=== PATIENT | male | born 1935 | race Hispanic/Latino ===

== ENCOUNTER → 2017-07-19 | Outpatient (CLI) | payer MEDICARE ==
[~2017-07-19] MED LIST: ACET-2247 PO; CLOP75TA14 PO; DOCU-116 PO; GLIP10TA9 PO; HYDR-4068 PO; LACT10SO9 PO; LOSA1TAB37 PO; METF10004 PO; NAPR-1023 PO; OMEP20CA10 PO; VALS1TAB79 PO; [UNRECOGNIZED DRUG - CODE] PO
== END | disposition home or self-care (01) ==
LOC: RAH 13:24
PROVIDERS: ATTEND Family Medicine
DX: I73.9 Peripheral vascular disease, unspecified (principal); I70.0 Atherosclerosis of aorta
CPT/HCPCS: 93925

== ENCOUNTER 2017-08-14 22:37 | Inpatient (IN) | payer MEDICARE ==
[~2017-08-14] VITALS: Ht 160 cm; Wt 62.9 kg
[~2017-08-14 22:37] MED LIST changes: -CLOP75TA14 PO
[2017-08-15] MEDS ORDERED: ONDANSETRON HCL 4 MG/2 ML VIAL ONE (00:42)
[2017-08-15] MEDS ORDERED: MORPHINE SULFATE 4 MG/1ML SYG ONE (00:43)
[2017-08-15 00:50] LABS: BASOPHILS % (AUTO) 0.6 % (0.0-5.0); EOSINOPHILS % (AUTO) 1.5 % (0.0-8.0); HEMATOCRIT 26.1 % (42-54); LYMPHOCYTES % (AUTO) 13.6 % (21.0-51.0); MEAN CORPUSCULAR HEMOGLOBIN 26.5 pg (27.0-33.0); MEAN CORPUSCULAR HGB CONC 33.5 g/dL (32.0-36.0); MEAN CORPUSCULAR VOLUME 79.1 fL (79-99); MONOCYTES % (AUTO) 7.6 % (3.0-13.0); NEUTROPHILS % (AUTO) 76.7 % (40.0-77.0); PLATELET COUNT (AUTO) 387 K/uL (130-400); RED CELL DISTRIBUTION WIDTH 15.1 % (11.0-15.5); WHITE BLOOD COUNT (AUTO) 10.9 K/uL (4.8-10.8)
[2017-08-15 01:07] LABS: CREATININE 1.5 mg/dL (0.5-1.5); POTASSIUM 4.9 mmol/L (3.5-5.1)
[2017-08-15 01:10] LABS: INR 0.96 (0.85-1.15); PARTIAL THROMBOPLASTIN TIME 30.8 SEC (26.3-35.5); PROTHROMBIN TIME 10.1 SEC (9.6-11.6)
[2017-08-15 01:12] LABS: BILIRUBIN,TOTAL 0.3 mg/dL (0.2-1.0)
[2017-08-15] MEDS ORDERED: MORPHINE SULFATE 2 MG/ML 1ML SYG ONE (03:54)
[2017-08-15] MEDS ORDERED: SODIUM CHLORIDE 0.9% 1000ML 1,000 ML IV ONE (05:03)
[2017-08-15] MEDS ORDERED: MEROPENEM 500 MG VIAL ONE (05:06)
[2017-08-15] MEDS ORDERED: CLOP75TA14 PO (05:55)
[2017-08-15 05:59] VITALS: BP 137/109
[2017-08-15] MEDS ORDERED: POTASSIUM CHLORIDE 10% ELIXIR 20 MEQ/15 ML UDCUP PO PRN (06:15)
[2017-08-15] MEDS ORDERED: POTASSIUM CHLORIDE 20MEQ/100ML 100 ML IV PRN (06:15)
[2017-08-15] MEDS ORDERED: POTASSIUM CHLORIDE 20 MEQ ERTAB PO PRN (06:15)
[2017-08-15] MEDS ORDERED: DiphenhydrAMINE HCL 50 MG/ML VIAL IVP PRN (06:15)
[2017-08-15] MEDS ORDERED: LIDOCAINE HCL-MPF 1% 2ML VIAL IJ PRN (06:15)
[2017-08-15] MEDS ORDERED: GLUCAGON 1MG KIT 1 MG ML IM PRN (06:15)
[2017-08-15] MEDS ORDERED: DEXTROSE 50%-WATER 50 ML DISP.SYRIN IV PRN (06:15)
[2017-08-15] MEDS ORDERED: LACTULOSE 20 GM/30 ML UDCUP PO PRN (06:15)
[2017-08-15] MEDS ORDERED: DIPHENHYDRAMINE HCL 25 MG CAPSULE PO PRN (06:15)
[2017-08-15] MEDS: CLONIDINE HCL 0.1 MG TABLET PO PRN (06:26)
[2017-08-15] MEDS: ACETAMINOPHEN 325 MG TAB PO PRN (06:27)
[2017-08-15] MEDS: INSULIN R PO SS1 SQ SCH ×4 (06:43→20:35)
[2017-08-15] MEDS: SODIUM CHLORIDE 0.9% 1000ML 1,000 ML IV SCH (07:30)
[2017-08-15 08:02] VITALS: BP 101/61
[2017-08-15 08:37] LABS: HEMATOCRIT 25.8 % (42-54); MEAN CORPUSCULAR HEMOGLOBIN 25.9 pg (27.0-33.0); MEAN CORPUSCULAR HGB CONC 32.8 g/dL (32.0-36.0); MEAN CORPUSCULAR VOLUME 78.9 fL (79-99); PLATELET COUNT (AUTO) 416 K/uL (130-400); RED BLOOD CELL COUNT(AUTO) 3.27 MIL/uL (4.50-6.20); RED CELL DISTRIBUTION WIDTH 14.9 % (11.0-15.5); WHITE BLOOD COUNT (AUTO) 7.9 K/uL (4.8-10.8)
[2017-08-15 09:05] LABS: INR 0.98 (0.85-1.15); PARTIAL THROMBOPLASTIN TIME 30.8 SEC (26.3-35.5); PROTHROMBIN TIME 10.3 SEC (9.6-11.6)
[2017-08-15 09:08] LABS: CREATININE 1.5 mg/dL (0.5-1.5); POTASSIUM 4.5 mmol/L (3.5-5.1)
[2017-08-15] MEDS: FAMOTIDINE 20MG TAB 20 MG TAB PO SCH (09:24)
[2017-08-15] MEDS: CLOPIDOGREL BISULFATE 75 MG TAB PO SCH (09:24)
[2017-08-15] MEDS: LOSARTAN/HYDROCHLOROTHIAZIDE 50-12.5MG TABLET PO SCH ×2 (09:24→20:33)
[2017-08-15] MEDS: METFORMIN HCL 500 MG TABLET PO SCH ×2 (09:24→16:40)
[2017-08-15] MEDS: GLIPIZIDE 5 MG TABLET PO SCH ×2 (09:24→16:40)
[2017-08-15] MEDS: MORPHINE SULFATE 2 MG/ML 1ML SYG IVP PRN ×2 (09:29→18:10)
[2017-08-15] MEDS ORDERED: VANCOMYCIN PROTOCOL PER PHARMACY IV PRN (09:45)
[2017-08-15] MEDS ORDERED: VANCOMYCIN 1GM+NS 250ML 250 ML IV SCH (09:45)
[2017-08-15 11:32] VITALS: BP 123/64
[2017-08-15] MEDS: MEROPENEM 500 MG VIAL IVP SCH ×2 (13:22→20:35)
[2017-08-15 16:54] VITALS: BP 112/66
[2017-08-15 20:00] VITALS: BP 166/84
[2017-08-15] MEDS: MORPHINE SULFATE 4 MG/1ML SYG IVP PRN (22:05)
[2017-08-16] VITALS (7 sets, daily range): BP systolic 116–192; BP diastolic 68–88
[2017-08-16] MEDS: CLONIDINE HCL 0.1 MG TABLET PO PRN ×2 (00:31→20:15)
[2017-08-16] MEDS: SODIUM CHLORIDE 0.9% 1000ML 1,000 ML IV SCH ×2 (01:26→20:15)
[2017-08-16] MEDS: MEROPENEM 500 MG VIAL IVP SCH ×3 (04:57→20:14)
[2017-08-16 06:07] LABS: MEAN CORPUSCULAR HEMOGLOBIN 26.2 pg (27.0-33.0); MEAN CORPUSCULAR HGB CONC 33.5 g/dL (32.0-36.0); MEAN CORPUSCULAR VOLUME 78.4 fL (79-99); PLATELET COUNT (AUTO) 347 K/uL (130-400); RED BLOOD CELL COUNT(AUTO) 2.94 MIL/uL (4.50-6.20); WHITE BLOOD COUNT (AUTO) 9.4 K/uL (4.8-10.8)
[2017-08-16 06:19] LABS: CREATININE 1.4 mg/dL (0.5-1.5); POTASSIUM 4.5 mmol/L (3.5-5.1)
[2017-08-16] MEDS: FLU VACC QS2017-18 36MOS UP/PF 60 MCG/0.5 ML ML IM NR ×2 (06:26→06:28)
[2017-08-16] MEDS: PNEUMOCOCCAL VACCINE POLYVALENT 0.5 ML/VIAL [PPV] IM SCH ×2 (06:27→06:28)
[2017-08-16] MEDS: INSULIN R PO SS1 SQ SCH ×4 (06:27→20:25)
[2017-08-16] MEDS: MORPHINE SULFATE 4 MG/1ML SYG IVP PRN ×3 (09:15→22:51)
[2017-08-16] MEDS: FAMOTIDINE 20MG TAB 20 MG TAB PO SCH (09:50)
[2017-08-16] MEDS: CLOPIDOGREL BISULFATE 75 MG TAB PO SCH (09:50)
[2017-08-16] MEDS: LOSARTAN/HYDROCHLOROTHIAZIDE 50-12.5MG TABLET PO SCH ×2 (09:50→20:15)
[2017-08-16] MEDS: METFORMIN HCL 500 MG TABLET PO SCH ×2 (09:51→16:05)
[2017-08-16] MEDS: GLIPIZIDE 5 MG TABLET PO SCH ×2 (09:51→16:05)
[2017-08-16] MEDS: ENOXAPARIN SODIUM 30 MG/0.3 ML SQ SCH (09:52)
[2017-08-16] MEDS: ACETAMINOPHEN-CODEINE 300/30MG TAB PO PRN (20:15)
[2017-08-17 04:00] VITALS: BP 125/62
[2017-08-17] MEDS: MEROPENEM 500 MG VIAL IVP SCH ×3 (04:24→21:37)
[2017-08-17] MEDS: MORPHINE SULFATE 4 MG/1ML SYG IVP PRN (04:29)
[2017-08-17 05:45] LABS: HEMATOCRIT 22.7 % (42-54); MEAN CORPUSCULAR HEMOGLOBIN 25.8 pg (27.0-33.0); MEAN CORPUSCULAR HGB CONC 33.1 g/dL (32.0-36.0); PLATELET COUNT (AUTO) 368 K/uL (130-400); RED BLOOD CELL COUNT(AUTO) 2.92 MIL/uL (4.50-6.20); WHITE BLOOD COUNT (AUTO) 8.3 K/uL (4.8-10.8)
[2017-08-17 05:53] LABS: CREATININE 1.4 mg/dL (0.5-1.5); POTASSIUM 4.4 mmol/L (3.5-5.1)
[2017-08-17] MEDS: INSULIN R PO SS1 SQ SCH ×4 (05:58→22:15)
[2017-08-17 07:30] VITALS: BP 110/58
[2017-08-17] MEDS ORDERED: COMPOUND IV REFRIGERATED 1 EACH IVSOLN MISC PRN (08:15)
[2017-08-17] MEDS ORDERED: VANCOMYCIN 1.25 GM in SODIUM CHLORIDE 0.9% 250 ML IV SCH (09:00)
[2017-08-17] MEDS: ENOXAPARIN SODIUM 30 MG/0.3 ML SQ SCH (09:00)
[2017-08-17] MEDS: SODIUM CHLORIDE 0.9% 1000ML 1,000 ML IV SCH ×2 (10:04→18:09)
[2017-08-17] MEDS: GLIPIZIDE 5 MG TABLET PO SCH ×2 (10:32→17:00)
[2017-08-17] MEDS: LOSARTAN/HYDROCHLOROTHIAZIDE 50-12.5MG TABLET PO SCH ×2 (10:32→21:38)
[2017-08-17] MEDS: ASPIRIN 81MG TAB.CHEW PO SCH (10:32)
[2017-08-17] MEDS: FAMOTIDINE 20MG TAB 20 MG TAB PO SCH (10:32)
[2017-08-17] MEDS: METFORMIN HCL 500 MG TABLET PO SCH ×2 (10:32→17:00)
[2017-08-17 10:38] LABS: RETICULOCYTE % (AUTO) 1.46 % (0.42-2.23)
[2017-08-17] MEDS ORDERED: COMPOUND IV MISC 1 EACH IVSOLN MISC PRN (10:45)
[2017-08-17 11:07] LABS: % IRON SATURATION 6.9 % (30-44)
[2017-08-17 12:00] VITALS: BP 137/68
[2017-08-17] MEDS: IRON SUCROSE COMPLEX 100 MG in SODIUM CHLORIDE 0.9% 50 ML IV SCH (13:39)
[2017-08-17 16:00] VITALS: BP 133/53
[2017-08-17] MEDS ORDERED: IOPAMIDOL-370 100 ML VIAL IV ONE (16:48)
[2017-08-17] MEDS: MORPHINE SULFATE 2 MG/ML 1ML SYG IVP PRN (17:10)
[2017-08-17 19:56] VITALS: BP 145/64
[2017-08-17] MEDS: VANCOMYCIN 750MG + NS 250 ML IV SCH ×2 (21:36)
[2017-08-17 23:44] VITALS: BP 140/59
[2017-08-18] MEDS: MORPHINE SULFATE 2 MG/ML 1ML SYG IVP PRN (04:22)
[2017-08-18 05:12] VITALS: BP 145/69
[2017-08-18] MEDS: MEROPENEM 500 MG VIAL IVP SCH ×3 (05:17→21:23)
[2017-08-18 05:33] LABS: MEAN CORPUSCULAR HEMOGLOBIN 26.2 pg (27.0-33.0); MEAN CORPUSCULAR HGB CONC 33.6 g/dL (32.0-36.0); MEAN CORPUSCULAR VOLUME 77.9 fL (79-99); PLATELET COUNT (AUTO) 389 K/uL (130-400); RED BLOOD CELL COUNT(AUTO) 2.95 MIL/uL (4.50-6.20); RED CELL DISTRIBUTION WIDTH 15.3 % (11.0-15.5); WHITE BLOOD COUNT (AUTO) 8.5 K/uL (4.8-10.8)
[2017-08-18 05:46] LABS: CREATININE 1.4 mg/dL (0.5-1.5); POTASSIUM 4.3 mmol/L (3.5-5.1)
[2017-08-18] MEDS: INSULIN R PO SS1 SQ SCH ×4 (06:34→21:00)
[2017-08-18 07:45] VITALS: BP 166/70
[2017-08-18] MEDS: VANCOMYCIN 750MG + NS 250 ML IV SCH ×4 (10:14→21:24)
[2017-08-18] MEDS: FAMOTIDINE 20MG TAB 20 MG TAB PO SCH (10:14)
[2017-08-18] MEDS: IRON SUCROSE COMPLEX 100 MG in SODIUM CHLORIDE 0.9% 50 ML IV SCH (10:14)
[2017-08-18] MEDS: GLIPIZIDE 5 MG TABLET PO SCH ×2 (10:15→17:28)
[2017-08-18] MEDS: LOSARTAN/HYDROCHLOROTHIAZIDE 50-12.5MG TABLET PO SCH ×2 (10:15→21:23)
[2017-08-18] MEDS: ASPIRIN 81MG TAB.CHEW PO SCH (10:15)
[2017-08-18] MEDS: ENOXAPARIN SODIUM 30 MG/0.3 ML SQ SCH (10:16)
[2017-08-18] MEDS: METFORMIN HCL 500 MG TABLET PO SCH ×2 (10:16→17:27)
[2017-08-18] MEDS: ACETAMINOPHEN-CODEINE 300/30MG TAB PO PRN ×2 (10:17→21:23)
[2017-08-18 12:00] VITALS: BP 149/66
[2017-08-18 17:04] VITALS: BP 132/94
[2017-08-18 20:01] VITALS: BP 146/71
[2017-08-19] VITALS (7 sets, daily range): BP systolic 132–180; BP diastolic 64–87
[2017-08-19] MEDS: MORPHINE SULFATE 4 MG/1ML SYG IVP PRN (00:56)
[2017-08-19] MEDS: CLONIDINE HCL 0.1 MG TABLET PO PRN ×2 (05:23→23:26)
[2017-08-19] MEDS: MEROPENEM 500 MG VIAL IVP SCH ×3 (05:23→20:16)
[2017-08-19] MEDS: INSULIN R PO SS1 SQ SCH ×4 (05:45→21:00)
[2017-08-19] MEDS: VANCOMYCIN 750MG + NS 250 ML IV SCH ×2 (09:00)
[2017-08-19] MEDS: MORPHINE SULFATE 2 MG/ML 1ML SYG IVP PRN ×2 (09:04→18:48)
[2017-08-19] MEDS: ENOXAPARIN SODIUM 30 MG/0.3 ML SQ SCH (09:05)
[2017-08-19] MEDS: FAMOTIDINE 20MG TAB 20 MG TAB PO SCH (09:06)
[2017-08-19] MEDS: ASPIRIN 81MG TAB.CHEW PO SCH (09:06)
[2017-08-19] MEDS: IRON SUCROSE COMPLEX 100 MG in SODIUM CHLORIDE 0.9% 50 ML IV SCH (09:06)
[2017-08-19] MEDS: LOSARTAN/HYDROCHLOROTHIAZIDE 50-12.5MG TABLET PO SCH ×2 (09:06→20:17)
[2017-08-19] MEDS: METFORMIN HCL 500 MG TABLET PO SCH ×2 (09:06→16:49)
[2017-08-19] MEDS: GLIPIZIDE 5 MG TABLET PO SCH ×2 (09:06→16:49)
[2017-08-19] MEDS ORDERED: CYANOCOBALAMIN (VITAMIN B-12) 1000 MCG/ML 1ML VIAL IM ONE (14:30)
[2017-08-19] MEDS ORDERED: CYANOCOBALAMIN (VITAMIN B-12) 1000 MCG/ML 1ML VIAL ONE (15:56)
[2017-08-19] MEDS: VANCOMYCIN 1GM+NS 250ML 250 ML IV SCH (20:17)
[2017-08-20 04:12] VITALS: BP 137/66
[2017-08-20 04:54] LABS: MEAN CORPUSCULAR HEMOGLOBIN 25.8 pg (27.0-33.0); MEAN CORPUSCULAR HGB CONC 33.2 g/dL (32.0-36.0); MEAN CORPUSCULAR VOLUME 77.6 fL (79-99); PLATELET COUNT (AUTO) 420 K/uL (130-400); RED BLOOD CELL COUNT(AUTO) 2.96 MIL/uL (4.50-6.20); RED CELL DISTRIBUTION WIDTH 15.3 % (11.0-15.5)
[2017-08-20 05:08] LABS: CREATININE 1.2 mg/dL (0.5-1.5)
[2017-08-20] MEDS: MEROPENEM 500 MG VIAL IVP SCH ×3 (05:21→21:13)
[2017-08-20] MEDS: INSULIN R PO SS1 SQ SCH ×4 (06:45→20:33)
[2017-08-20 08:00] VITALS: BP 148/63
[2017-08-20] MEDS: IRON SUCROSE COMPLEX 100 MG in SODIUM CHLORIDE 0.9% 50 ML IV SCH (09:24)
[2017-08-20] MEDS: ENOXAPARIN SODIUM 30 MG/0.3 ML SQ SCH (09:25)
[2017-08-20] MEDS: ASPIRIN 81MG TAB.CHEW PO SCH (09:25)
[2017-08-20] MEDS: METFORMIN HCL 500 MG TABLET PO SCH (09:25)
[2017-08-20] MEDS: FAMOTIDINE 20MG TAB 20 MG TAB PO SCH (09:25)
[2017-08-20] MEDS: LOSARTAN/HYDROCHLOROTHIAZIDE 50-12.5MG TABLET PO SCH ×2 (09:25→21:14)
[2017-08-20] MEDS: GLIPIZIDE 5 MG TABLET PO SCH ×2 (09:25→16:58)
[2017-08-20] MEDS ORDERED: LIDOCAINE HCL 2% VISCOUS 30 ML, MAG HYDROX/AL HYDROX/SIMETH 30 ML, BELLADONNA-PHENOBARB... PO PRN ×3 (11:00)
[2017-08-20] MEDS ORDERED: COMPOUND PO MISCELLANEOUS 1 EACH MISC MISC PRN (11:15)
[2017-08-20] MEDS: METOCLOPRAMIDE 10 MG/2 ML VIAL IVP SCH ×2 (11:30→12:31)
[2017-08-20 11:36] LABS: AMYLASE 27 U/L (25-115)
[2017-08-20 11:37] LABS: LIPASE < 50 U/L (114-286)
[2017-08-20 11:53] VITALS: BP 183/94
[2017-08-20] MEDS: ONDANSETRON HCL 4 MG/2 ML VIAL IVP PRN (12:29)
[2017-08-20] MEDS: CLONIDINE HCL 0.1 MG TABLET PO PRN (12:30)
[2017-08-20 16:00] VITALS: BP 129/73
[2017-08-20 20:14] VITALS: BP 144/78
[2017-08-20] MEDS: VANCOMYCIN 1GM+NS 250ML 250 ML IV SCH (21:14)
[2017-08-20 23:27] VITALS: BP 147/78
[2017-08-21 04:49] VITALS: BP 146/77
[2017-08-21] MEDS: MEROPENEM 500 MG VIAL IVP SCH ×3 (05:08→21:13)
[2017-08-21 05:18] LABS: HEMATOCRIT 24.7 % (42-54); MEAN CORPUSCULAR HEMOGLOBIN 26.4 pg (27.0-33.0); MEAN CORPUSCULAR HGB CONC 33.7 g/dL (32.0-36.0); MEAN CORPUSCULAR VOLUME 78.2 fL (79-99); PLATELET COUNT (AUTO) 463 K/uL (130-400); RED BLOOD CELL COUNT(AUTO) 3.17 MIL/uL (4.50-6.20); RED CELL DISTRIBUTION WIDTH 15.8 % (11.0-15.5)
[2017-08-21 05:25] LABS: CREATININE 1.3 mg/dL (0.5-1.5); POTASSIUM 4.1 mmol/L (3.5-5.1)
[2017-08-21] MEDS: INSULIN R PO SS1 SQ SCH ×4 (05:41→21:00)
[2017-08-21] MEDS: METOCLOPRAMIDE 10 MG/2 ML VIAL IVP SCH ×2 (07:30→10:35)
[2017-08-21 07:56] VITALS: BP 163/91
[2017-08-21] MEDS: GLIPIZIDE 5 MG TABLET PO SCH ×2 (08:13→16:41)
[2017-08-21] MEDS: FAMOTIDINE 20MG TAB 20 MG TAB PO SCH (08:13)
[2017-08-21] MEDS: LOSARTAN/HYDROCHLOROTHIAZIDE 50-12.5MG TABLET PO SCH ×2 (08:13→21:13)
[2017-08-21] MEDS: ASPIRIN 81MG TAB.CHEW PO SCH (08:13)
[2017-08-21] MEDS: MORPHINE SULFATE 2 MG/ML 1ML SYG IVP PRN ×2 (08:14→21:14)
[2017-08-21] MEDS: IRON SUCROSE COMPLEX 100 MG in SODIUM CHLORIDE 0.9% 50 ML IV SCH (10:26)
[2017-08-21] MEDS: ENOXAPARIN SODIUM 30 MG/0.3 ML SQ SCH (10:27)
[2017-08-21 10:46] LABS: APPEARANCE,URINE CLEAR (CLEAR); BILIRUBIN,URINE NEGATIVE (NEGATIVE); COLOR,URINE YELLOW (YELLOW); GLUCOSE, URINE (UA) NEGATIVE (NEGATIVE); KETONES,URINE NEGATIVE (NEGATIVE); LEUKOCYTE ESTERASE ,URINE NEGATIVE (NEGATIVE); NITRATE,URINE NEGATIVE (NEGATIVE); OCCULT BLOOD,URINE TRACE-INTACT (NEGATIVE); PROTEIN,URINE 30 (NEGATIVE); UROBILINOGEN,URINE 0.2 mg/dL (0.2-1.0)
[2017-08-21 10:58] LABS: BACTERIA,URINE Rare /HPF (None Seen); RBC,URINE 0-1 /HPF (0-1); WBC,URINE None Seen /HPF (0-1)
[2017-08-21 10:59] LABS: SQUAMOUS EPITHELIAL CELL,UR Rare /LPF (0-2)
[2017-08-21] MEDS: ACETAMINOPHEN 325 MG TAB PO PRN (11:11)
[2017-08-21 11:50] VITALS: BP 166/82
[2017-08-21 15:33] VITALS: BP 135/75
[2017-08-21 20:15] VITALS: BP 163/98
[2017-08-21] MEDS: VANCOMYCIN 1GM+NS 250ML 250 ML IV SCH (21:13)
[2017-08-22 00:20] VITALS: BP 147/85
[2017-08-22 03:25] VITALS: BP 168/83
[2017-08-22] MEDS: CLONIDINE HCL 0.1 MG TABLET PO PRN ×2 (03:43→20:08)
[2017-08-22] MEDS: MEROPENEM 500 MG VIAL IVP SCH ×3 (05:10→20:08)
[2017-08-22 05:43] LABS: HEMATOCRIT 26.2 % (42-54); MEAN CORPUSCULAR HEMOGLOBIN 26.3 pg (27.0-33.0); MEAN CORPUSCULAR HGB CONC 33.5 g/dL (32.0-36.0); MEAN CORPUSCULAR VOLUME 78.6 fL (79-99); PLATELET COUNT (AUTO) 517 K/uL (130-400); RED BLOOD CELL COUNT(AUTO) 3.33 MIL/uL (4.50-6.20); RED CELL DISTRIBUTION WIDTH 15.8 % (11.0-15.5); WHITE BLOOD COUNT (AUTO) 8.3 K/uL (4.8-10.8)
[2017-08-22 05:52] LABS: CREATININE 1.2 mg/dL (0.5-1.5)
[2017-08-22] MEDS: INSULIN R PO SS1 SQ SCH ×4 (06:16→21:03)
[2017-08-22] MEDS: METOCLOPRAMIDE 10 MG/2 ML VIAL IVP SCH ×3 (06:47→17:00)
[2017-08-22 07:46] VITALS: BP 165/79
[2017-08-22] MEDS: GLIPIZIDE 5 MG TABLET PO SCH ×2 (08:00→17:06)
[2017-08-22] MEDS: IRON SUCROSE COMPLEX 100 MG in SODIUM CHLORIDE 0.9% 50 ML IV SCH (08:29)
[2017-08-22] MEDS: ASPIRIN 81MG TAB.CHEW PO SCH (09:00)
[2017-08-22] MEDS: FAMOTIDINE 20MG TAB 20 MG TAB PO SCH (09:00)
[2017-08-22] MEDS: LOSARTAN/HYDROCHLOROTHIAZIDE 50-12.5MG TABLET PO SCH ×2 (09:00→20:09)
[2017-08-22] MEDS: MORPHINE SULFATE 2 MG/ML 1ML SYG IVP PRN ×2 (10:38→23:10)
[2017-08-22] MEDS: POLYETHYLENE GLYCOL 3350 17 GM POWD.PACK PO SCH (11:05)
[2017-08-22 11:25] VITALS: BP 151/63
[2017-08-22] MEDS: SIMETHICONE 80 MG TAB.CHEW PO SCH ×3 (12:48→20:09)
[2017-08-22 16:00] VITALS: BP 182/80
[2017-08-22] MEDS: ENOXAPARIN SODIUM 30 MG/0.3 ML SQ SCH (17:08)
[2017-08-22 20:00] VITALS: BP 170/77
[2017-08-22] MEDS: VANCOMYCIN 1GM+NS 250ML 250 ML IV SCH (20:08)
[2017-08-23] VITALS (8 sets, daily range): BP systolic 113–197; BP diastolic 51–79
[2017-08-23] MEDS: ACETAMINOPHEN-CODEINE 300/30MG TAB PO PRN ×2 (03:03→20:15)
[2017-08-23] MEDS: MEROPENEM 500 MG VIAL IVP SCH ×3 (04:31→19:57)
[2017-08-23] MEDS: INSULIN R PO SS1 SQ SCH ×4 (05:53→20:58)
[2017-08-23] MEDS: METOCLOPRAMIDE 10 MG/2 ML VIAL IVP SCH ×3 (05:53→16:38)
[2017-08-23] MEDS: POLYETHYLENE GLYCOL 3350 17 GM POWD.PACK PO SCH (08:39)
[2017-08-23] MEDS: FAMOTIDINE 20MG TAB 20 MG TAB PO SCH (08:40)
[2017-08-23] MEDS: ASPIRIN 81MG TAB.CHEW PO SCH ×2 (08:40→09:00)
[2017-08-23] MEDS: ENOXAPARIN SODIUM 30 MG/0.3 ML SQ SCH ×2 (08:40→10:00)
[2017-08-23] MEDS: GLIPIZIDE 5 MG TABLET PO SCH ×2 (08:40→16:37)
[2017-08-23] MEDS: LOSARTAN/HYDROCHLOROTHIAZIDE 50-12.5MG TABLET PO SCH ×2 (08:40→19:57)
[2017-08-23] MEDS: SIMETHICONE 80 MG TAB.CHEW PO SCH ×4 (08:40→19:57)
[2017-08-23] MEDS: IRON SUCROSE COMPLEX 100 MG in SODIUM CHLORIDE 0.9% 50 ML IV SCH (09:31)
[2017-08-23] MEDS ORDERED: SODIUM CHLORIDE 0.9% 500ML 500 ML IV SCH (09:55)
[2017-08-23] MEDS: CYANOCOBALAMIN (VITAMIN B-12) 1,000 MCG TABLET PO SCH (10:00)
[2017-08-23 10:29] LABS: MEAN CORPUSCULAR HEMOGLOBIN 26.6 pg (27.0-33.0); MEAN CORPUSCULAR HGB CONC 33.7 g/dL (32.0-36.0); MEAN CORPUSCULAR VOLUME 79.1 fL (79-99); NUCLEATED RED BLOOD CELLS 0.1 % (0.0-0.19); PLATELET COUNT (AUTO) 541 K/uL (130-400); RED BLOOD CELL COUNT(AUTO) 3.54 MIL/uL (4.50-6.20); RED CELL DISTRIBUTION WIDTH 15.9 % (11.0-15.5); WHITE BLOOD COUNT (AUTO) 9.4 K/uL (4.8-10.8)
[2017-08-23 10:37] LABS: CREATININE 1.4 mg/dL (0.5-1.5); POTASSIUM 4.3 mmol/L (3.5-5.1)
[2017-08-23 10:47] LABS: INR 1.03 (0.85-1.15); PARTIAL THROMBOPLASTIN TIME 41.5 SEC (26.3-35.5); PROTHROMBIN TIME 10.8 SEC (9.6-11.6)
[2017-08-23] MEDS: SODIUM CHLORIDE 0.9% 1000ML 1,000 ML IV SCH (16:37)
[2017-08-23] MEDS: CLONIDINE HCL 0.1 MG TABLET PO PRN (19:57)
[2017-08-23] MEDS: ZOLPIDEM TARTRATE 5 MG TAB PO PRN (19:57)
[2017-08-23] MEDS: VANCOMYCIN 1GM+NS 250ML 250 ML IV SCH (20:09)
[2017-08-24 04:00] VITALS: BP 138/78
[2017-08-24] MEDS: MEROPENEM 500 MG VIAL IVP SCH ×3 (05:05→20:08)
[2017-08-24] MEDS: INSULIN R PO SS1 SQ SCH ×4 (06:09→20:41)
[2017-08-24] MEDS: METOCLOPRAMIDE 10 MG/2 ML VIAL IVP SCH ×3 (06:09→16:56)
[2017-08-24 06:11] LABS: INR 1.02 (0.85-1.15); PARTIAL THROMBOPLASTIN TIME 36.3 SEC (26.3-35.5); PROTHROMBIN TIME 10.7 SEC (9.6-11.6)
[2017-08-24] MEDS: SODIUM CHLORIDE 0.9% 1000ML 1,000 ML IV SCH (06:25)
[2017-08-24 06:30] LABS: CREATINE KINASE MB 0.7 ng/mL (0.5-3.6); CREATINE KINASE, TOTAL 104 U/L (21-232); MYOGLOBIN 58 ng/mL (10-92); TROPONIN I < 0.04 ng/mL (0.00-0.06)
[2017-08-24] MEDS ORDERED: ISOVUE-300 100 ML VIAL IV ONE (07:17)
[2017-08-24] MEDS ORDERED: NITROGLYCERIN 5 MG/ML 10 ML VIAL IV ONE (07:17)
[2017-08-24] MEDS ORDERED: HEPARIN SODIUM 1000UNIT/ML 10ML VIAL ONE (07:17)
[2017-08-24] MEDS ORDERED: LIDOCAINE HCL 2% 20ML ONE (07:17)
[2017-08-24 07:45] VITALS: BP 125/66
[2017-08-24] MEDS: SIMETHICONE 80 MG TAB.CHEW PO SCH ×4 (10:12→20:09)
[2017-08-24] MEDS: LOSARTAN/HYDROCHLOROTHIAZIDE 50-12.5MG TABLET PO SCH ×2 (10:12→20:10)
[2017-08-24] MEDS: CYANOCOBALAMIN (VITAMIN B-12) 1,000 MCG TABLET PO SCH (10:12)
[2017-08-24] MEDS: FAMOTIDINE 20MG TAB 20 MG TAB PO SCH (10:12)
[2017-08-24] MEDS: ASPIRIN 81MG TAB.CHEW PO SCH (10:13)
[2017-08-24] MEDS: GLIPIZIDE 5 MG TABLET PO SCH ×2 (10:13→16:48)
[2017-08-24] MEDS: POLYETHYLENE GLYCOL 3350 17 GM POWD.PACK PO SCH (10:13)
[2017-08-24] MEDS: ENOXAPARIN SODIUM 30 MG/0.3 ML SQ SCH (10:15)
[2017-08-24] MEDS: IRON SUCROSE COMPLEX 100 MG in SODIUM CHLORIDE 0.9% 50 ML IV SCH (10:18)
[2017-08-24 11:00] VITALS: BP 157/79
[2017-08-24] MEDS: ACETAMINOPHEN-CODEINE 300/30MG TAB PO PRN (14:05)
[2017-08-24 16:00] VITALS: BP 133/68
[2017-08-24 20:00] VITALS: BP 221/103
[2017-08-24] MEDS: VANCOMYCIN 1GM+NS 250ML 250 ML IV SCH (20:09)
[2017-08-24] MEDS: CLONIDINE HCL 0.1 MG TABLET PO PRN (20:10)
[2017-08-24 20:30] VITALS: BP 190/80
[2017-08-25] VITALS: BP 161/77
[2017-08-25] MEDS: ZOLPIDEM TARTRATE 5 MG TAB PO PRN (00:34)
[2017-08-25] MEDS: ACETAMINOPHEN-CODEINE 300/30MG TAB PO PRN ×2 (00:34→17:46)
[2017-08-25 04:00] VITALS: BP 161/95
[2017-08-25] MEDS: MEROPENEM 500 MG VIAL IVP SCH ×3 (04:19→20:35)
[2017-08-25] MEDS: CLONIDINE HCL 0.1 MG TABLET PO PRN ×2 (05:22→09:06)
[2017-08-25] MEDS: INSULIN R PO SS1 SQ SCH ×4 (06:36→20:35)
[2017-08-25] MEDS: METOCLOPRAMIDE 10 MG/2 ML VIAL IVP SCH ×3 (06:36→17:00)
[2017-08-25 08:00] VITALS: BP 191/91
[2017-08-25] MEDS: LOSARTAN/HYDROCHLOROTHIAZIDE 50-12.5MG TABLET PO SCH ×3 (09:00→20:38)
[2017-08-25] MEDS: CYANOCOBALAMIN (VITAMIN B-12) 1,000 MCG TABLET PO SCH (09:06)
[2017-08-25] MEDS: FAMOTIDINE 20MG TAB 20 MG TAB PO SCH (09:06)
[2017-08-25] MEDS: IRON SUCROSE COMPLEX 100 MG in SODIUM CHLORIDE 0.9% 50 ML IV SCH (09:06)
[2017-08-25] MEDS: ASPIRIN 81MG TAB.CHEW PO SCH (09:06)
[2017-08-25] MEDS: GLIPIZIDE 5 MG TABLET PO SCH ×2 (09:06→17:44)
[2017-08-25] MEDS: POLYETHYLENE GLYCOL 3350 17 GM POWD.PACK PO SCH (09:06)
[2017-08-25] MEDS: SIMETHICONE 80 MG TAB.CHEW PO SCH ×4 (09:06→20:25)
[2017-08-25] MEDS: ENOXAPARIN SODIUM 30 MG/0.3 ML SQ SCH (09:07)
[2017-08-25 12:00] VITALS: BP 149/70
[2017-08-25] MEDS: AMLODIPINE BESYLATE 5 MG TAB PO SCH (12:59)
[2017-08-25] MEDS ORDERED: SODIUM CHLORIDE 0.9% 500ML 500 ML IV SCH (13:15)
[2017-08-25 14:32] LABS: CREATININE 1.3 mg/dL (0.5-1.5); POTASSIUM 4.6 mmol/L (3.5-5.1)
[2017-08-25 16:00] VITALS: BP 154/73
[2017-08-25] MEDS: LIDOCAINE 5% TOPICAL PATCH TP SCH (18:18)
[2017-08-25 20:00] VITALS: BP 137/77
[2017-08-25] MEDS: VANCOMYCIN 1GM+NS 250ML 250 ML IV SCH (20:25)
[2017-08-26] VITALS (22 sets, daily range): BP systolic 95–182; BP diastolic 54–88
[2017-08-26] MEDS: MEROPENEM 500 MG VIAL IVP SCH ×3 (04:51→21:12)
[2017-08-26 04:52] LABS: HEMATOCRIT 29.5 % (42-54); MEAN CORPUSCULAR HEMOGLOBIN 26.5 pg (27.0-33.0); MEAN CORPUSCULAR HGB CONC 33.2 g/dL (32.0-36.0); MEAN CORPUSCULAR VOLUME 79.8 fL (79-99); PLATELET COUNT (AUTO) 596 K/uL (130-400)
[2017-08-26 05:00] LABS: CREATININE 1.2 mg/dL (0.5-1.5); POTASSIUM 4.3 mmol/L (3.5-5.1)
[2017-08-26] MEDS: INSULIN R PO SS1 SQ SCH ×4 (06:47→21:21)
[2017-08-26] MEDS: METOCLOPRAMIDE 10 MG/2 ML VIAL IVP SCH ×3 (06:47→17:00)
[2017-08-26] MEDS: GLIPIZIDE 5 MG TABLET PO SCH ×2 (08:00→17:02)
[2017-08-26] MEDS ORDERED: HEPARIN SODIUM 1000UNIT/ML 10ML VIAL ONE (08:47)
[2017-08-26] MEDS ORDERED: NITROGLYCERIN 5 MG/ML 10 ML VIAL IV ONE (08:47)
[2017-08-26] MEDS ORDERED: LIDOCAINE HCL 2% 20ML ONE (08:48)
[2017-08-26] MEDS ORDERED: ISOVUE-300 100 ML VIAL IV ONE (08:48)
[2017-08-26] MEDS: CYANOCOBALAMIN (VITAMIN B-12) 1,000 MCG TABLET PO SCH (09:00)
[2017-08-26] MEDS: ASPIRIN 81MG TAB.CHEW PO SCH (09:00)
[2017-08-26] MEDS: FAMOTIDINE 20MG TAB 20 MG TAB PO SCH (09:00)
[2017-08-26] MEDS: SIMETHICONE 80 MG TAB.CHEW PO SCH ×4 (09:00→21:12)
[2017-08-26] MEDS: ENOXAPARIN SODIUM 30 MG/0.3 ML SQ SCH (09:00)
[2017-08-26] MEDS: POLYETHYLENE GLYCOL 3350 17 GM POWD.PACK PO SCH (09:00)
[2017-08-26] MEDS: AMLODIPINE BESYLATE 5 MG TAB PO SCH (09:00)
[2017-08-26] MEDS: LOSARTAN/HYDROCHLOROTHIAZIDE 50-12.5MG TABLET PO SCH ×2 (09:00→21:12)
[2017-08-26] MEDS: IRON SUCROSE COMPLEX 100 MG in SODIUM CHLORIDE 0.9% 50 ML IV SCH (09:16)
[2017-08-26] MEDS ORDERED: KETAMINE HCL 100 MG/ML 5ML VIAL IJ ONE (09:35)
[2017-08-26] MEDS ORDERED: MIDAZOLAM HCL 1 MG/ML 5ML VIAL ONE (09:35)
[2017-08-26] MEDS ORDERED: FENTANYL CITRATE PF 50 MCG/1 ML 5ML AMP IV ONE (09:35)
[2017-08-26] MEDS ORDERED: LABETALOL HCL 5 MG/ML 20ML VIAL IV ONE (09:52)
[2017-08-26] MEDS ORDERED: SODIUM CHLORIDE 0.9% 1000ML 1,000 ML IV SCH (10:28)
[2017-08-26] MEDS ORDERED: HYDRALAZINE HCL 20 MG/ML VIAL IV PRN (10:30)
[2017-08-26] MEDS ORDERED: METOPROLOL TARTRATE 1 MG/ML 5ML VIAL IV PRN (10:30)
[2017-08-26] MEDS: LIDOCAINE 5% TOPICAL PATCH TP SCH (11:36)
[2017-08-26] MEDS: HYDRALAZINE HCL 20 MG/ML VIAL IV PRN (11:37)
[2017-08-26] MEDS: MORPHINE SULFATE 2 MG/ML 1ML SYG IVP PRN (11:37)
[2017-08-26] MEDS ORDERED: COMPOUND IV REFRIGERATED 1 EACH IVSOLN MISC PRN (20:30)
[2017-08-27 04:00] VITALS: BP 136/56
[2017-08-27] MEDS: MEROPENEM 500 MG VIAL IVP SCH ×3 (05:37→21:57)
[2017-08-27] MEDS: MORPHINE SULFATE 2 MG/ML 1ML SYG IVP PRN (06:13)
[2017-08-27] MEDS: METOCLOPRAMIDE 10 MG/2 ML VIAL IVP SCH ×3 (06:40→17:00)
[2017-08-27] MEDS: INSULIN R PO SS1 SQ SCH ×4 (06:41→21:00)
[2017-08-27 07:00] VITALS: BP 160/76
[2017-08-27] MEDS: ACETAMINOPHEN-CODEINE 300/30MG TAB PO PRN ×2 (07:13→22:23)
[2017-08-27] MEDS: GLIPIZIDE 5 MG TABLET PO SCH ×3 (08:00→17:01)
[2017-08-27] MEDS: IRON SUCROSE COMPLEX 100 MG in SODIUM CHLORIDE 0.9% 50 ML IV SCH (09:00)
[2017-08-27] MEDS: FAMOTIDINE 20MG TAB 20 MG TAB PO SCH (09:14)
[2017-08-27] MEDS: CYANOCOBALAMIN (VITAMIN B-12) 1,000 MCG TABLET PO SCH (09:15)
[2017-08-27] MEDS: SIMETHICONE 80 MG TAB.CHEW PO SCH ×4 (09:15→21:58)
[2017-08-27] MEDS: LOSARTAN/HYDROCHLOROTHIAZIDE 50-12.5MG TABLET PO SCH ×3 (09:15→22:19)
[2017-08-27] MEDS: AMLODIPINE BESYLATE 5 MG TAB PO SCH (09:15)
[2017-08-27] MEDS: ASPIRIN 81MG TAB.CHEW PO SCH (09:15)
[2017-08-27] MEDS: POLYETHYLENE GLYCOL 3350 17 GM POWD.PACK PO SCH (09:16)
[2017-08-27] MEDS: LIDOCAINE 5% TOPICAL PATCH TP SCH (09:16)
[2017-08-27] MEDS: VANCOMYCIN 750MG + NS 250 ML IV SCH ×2 (09:29)
[2017-08-27 11:00] VITALS: BP 163/70
[2017-08-27] MEDS: ENOXAPARIN SODIUM 30 MG/0.3 ML SQ SCH (12:35)
[2017-08-27 16:00] VITALS: BP_SYST 149; BP_SYST 168; BP_DIAS 75; BP_DIAS 85
[2017-08-27] MEDS: HYDRALAZINE HCL 20 MG/ML VIAL IV PRN (17:01)
[2017-08-27 19:49] VITALS: BP 135/65
[2017-08-28] VITALS: BP 138/70
[2017-08-28 04:00] VITALS: BP 153/65
[2017-08-28 05:51] LABS: HEMATOCRIT 30.3 % (42-54); MEAN CORPUSCULAR HEMOGLOBIN 26.6 pg (27.0-33.0); MEAN CORPUSCULAR HGB CONC 33.2 g/dL (32.0-36.0); MEAN CORPUSCULAR VOLUME 80.2 fL (79-99); PLATELET COUNT (AUTO) 558 K/uL (130-400); RED BLOOD CELL COUNT(AUTO) 3.78 MIL/uL (4.50-6.20); RED CELL DISTRIBUTION WIDTH 18.3 % (11.0-15.5); WHITE BLOOD COUNT (AUTO) 10.5 K/uL (4.8-10.8)
[2017-08-28 06:12] LABS: CREATININE 1.2 mg/dL (0.5-1.5); POTASSIUM 4.1 mmol/L (3.5-5.1)
[2017-08-28 07:00] VITALS: BP 144/68
[2017-08-28] MEDS: METOCLOPRAMIDE 10 MG/2 ML VIAL IVP SCH ×3 (07:30→17:00)
[2017-08-28] MEDS: INSULIN R PO SS1 SQ SCH ×4 (07:30→21:00)
[2017-08-28] MEDS: METOCLOPRAMIDE 5 MG TABLET ONE ×2 (07:35→07:54)
[2017-08-28] MEDS: MEROPENEM 500 MG VIAL IVP SCH ×3 (07:38→22:35)
[2017-08-28] MEDS: GLIPIZIDE 5 MG TABLET PO SCH ×2 (08:37→17:59)
[2017-08-28] MEDS: CYANOCOBALAMIN (VITAMIN B-12) 1,000 MCG TABLET PO SCH (08:38)
[2017-08-28] MEDS: FAMOTIDINE 20MG TAB 20 MG TAB PO SCH (08:38)
[2017-08-28] MEDS: AMLODIPINE BESYLATE 5 MG TAB PO SCH (08:38)
[2017-08-28] MEDS: SIMETHICONE 80 MG TAB.CHEW PO SCH ×4 (08:38→22:35)
[2017-08-28] MEDS: ASPIRIN 81MG TAB.CHEW PO SCH (08:38)
[2017-08-28] MEDS: POLYETHYLENE GLYCOL 3350 17 GM POWD.PACK PO SCH (08:38)
[2017-08-28] MEDS: IRON SUCROSE COMPLEX 100 MG in SODIUM CHLORIDE 0.9% 50 ML IV SCH (08:38)
[2017-08-28] MEDS: LIDOCAINE 5% TOPICAL PATCH TP SCH (08:40)
[2017-08-28] MEDS: ENOXAPARIN SODIUM 30 MG/0.3 ML SQ SCH (08:40)
[2017-08-28 11:00] VITALS: BP 186/89
[2017-08-28] MEDS: VANCOMYCIN 750MG + NS 250 ML IV SCH ×2 (11:49)
[2017-08-28] MEDS: HYDRALAZINE HCL 20 MG/ML VIAL IV PRN (12:05)
[2017-08-28] MEDS: ONDANSETRON HCL 4 MG/2 ML VIAL IVP PRN (13:09)
[2017-08-28] MEDS: LIDOCAINE HCL 2% VISCOUS 30 ML, MAG HYDROX/AL HYDROX/SIMETH 30 ML, DICYCLOMINE HCL 20 MG PO PRN ×9 (13:22→22:34)
[2017-08-28] MEDS ORDERED: SODIUM CHLORIDE 0.9% 500ML 500 ML IV ONE (14:15)
[2017-08-28] MEDS ORDERED: SODIUM CHLORIDE 0.9% 500ML 500 ML IV SCH (14:15)
[2017-08-28 16:00] VITALS: BP 121/70
[2017-08-28 20:00] VITALS: BP 139/61
[2017-08-28] MEDS: LOSARTAN/HYDROCHLOROTHIAZIDE 50-12.5MG TABLET PO SCH (21:00)
[2017-08-28] MEDS: ACETAMINOPHEN-CODEINE 300/30MG TAB PO PRN (22:34)
[2017-08-29] VITALS (21 sets, daily range): BP systolic 100–193; BP diastolic 54–89
[2017-08-29] MEDS: MEROPENEM 500 MG VIAL IVP SCH ×2 (04:37→12:35)
[2017-08-29] MEDS: HYDRALAZINE HCL 20 MG/ML VIAL IV PRN ×2 (04:37→04:52)
[2017-08-29] MEDS ORDERED: SODIUM CHLORIDE 0.9% 1000ML 1,000 ML IV ONE (06:23)
[2017-08-29] MEDS: INSULIN R PO SS1 SQ SCH ×4 (06:28→21:28)
[2017-08-29] MEDS: METOCLOPRAMIDE 10 MG/2 ML VIAL IVP SCH ×3 (06:28→16:51)
[2017-08-29] MEDS ORDERED: LIDOCAINE PF 2% 5ML ABBOJECT ONE (07:58)
[2017-08-29] MEDS ORDERED: ONDANSETRON HCL 4 MG/2 ML VIAL ONE ×2 (07:58→09:17)
[2017-08-29] MEDS ORDERED: ROCURONIUM BROMIDE 10MG/1ML 5ML VL ONE (07:58)
[2017-08-29] MEDS ORDERED: PROPOFOL 10 MG/ML 20ML VIAL IV ONE (07:59)
[2017-08-29] MEDS ORDERED: FENTANYL CITRATE PF 50 MCG/1 ML 2ML VIAL ONE (07:59)
[2017-08-29] MEDS: VANCOMYCIN 750MG + NS 250 ML IV SCH ×4 (08:00)
[2017-08-29] MEDS ORDERED: ROPIVACAINE 0.5% 5MG/ML 30ML IJ ONE (08:00)
[2017-08-29] MEDS ORDERED: NEOMY SULF/POLYMYXIN B SULFATE 1 ML AMPUL IR ONE (08:40)
[2017-08-29] MEDS: ENOXAPARIN SODIUM 30 MG/0.3 ML SQ SCH (09:00)
[2017-08-29] MEDS: SIMETHICONE 80 MG TAB.CHEW PO SCH ×4 (09:00→21:31)
[2017-08-29] MEDS: LOSARTAN/HYDROCHLOROTHIAZIDE 50-12.5MG TABLET PO SCH ×3 (09:00→21:00)
[2017-08-29] MEDS ORDERED: NEOSTIGMINE METHYLSULFATE 1MG/ML IV ONE (09:15)
[2017-08-29] MEDS ORDERED: GLYCOPYRROLATE 0.2 MG/ML 5 ML VIAL ONE (09:17)
[2017-08-29] MEDS ORDERED: PHENYLEPHRINE HCL 10 MG/ML 1ML VIAL IV ONE (09:17)
[2017-08-29] MEDS ORDERED: LABETALOL HCL 5 MG/ML 20ML VIAL IV ONE (09:42)
[2017-08-29] MEDS: GLIPIZIDE 5 MG TABLET PO SCH ×2 (12:34→17:31)
[2017-08-29] MEDS: AMLODIPINE BESYLATE 5 MG TAB PO SCH (12:35)
[2017-08-29] MEDS: FAMOTIDINE 20MG TAB 20 MG TAB PO SCH (12:35)
[2017-08-29] MEDS: CYANOCOBALAMIN (VITAMIN B-12) 1,000 MCG TABLET PO SCH (12:35)
[2017-08-29] MEDS: ASPIRIN 81MG TAB.CHEW PO SCH (12:35)
[2017-08-29] MEDS: LIDOCAINE 5% TOPICAL PATCH TP SCH (12:35)
[2017-08-29] MEDS: POLYETHYLENE GLYCOL 3350 17 GM POWD.PACK PO SCH (12:36)
[2017-08-29] MEDS: ACETAMINOPHEN 325 MG TAB PO PRN (12:41)
[2017-08-29] MEDS ORDERED: MORPHINE SULFATE 4 MG/1ML SYG IV PRN (16:00)
[2017-08-30] VITALS: BP 133/64
[2017-08-30 04:00] VITALS: BP 137/68
[2017-08-30 05:30] LABS: HEMATOCRIT 27.9 % (42-54); MEAN CORPUSCULAR HEMOGLOBIN 26.5 pg (27.0-33.0); MEAN CORPUSCULAR HGB CONC 32.4 g/dL (32.0-36.0); MEAN CORPUSCULAR VOLUME 81.9 fL (79-99); PLATELET COUNT (AUTO) 433 K/uL (130-400); RED CELL DISTRIBUTION WIDTH 18.9 % (11.0-15.5); WHITE BLOOD COUNT (AUTO) 11.2 K/uL (4.8-10.8)
[2017-08-30 05:43] LABS: CREATININE 1.4 mg/dL (0.5-1.5); POTASSIUM 4.2 mmol/L (3.5-5.1)
[2017-08-30] MEDS: INSULIN R PO SS1 SQ SCH ×5 (06:19→21:25)
[2017-08-30] MEDS: METOCLOPRAMIDE 10 MG/2 ML VIAL IVP SCH ×3 (06:19→17:00)
[2017-08-30 08:00] VITALS: BP 161/72
[2017-08-30] MEDS: VANCOMYCIN 750MG + NS 250 ML IV SCH ×2 (08:00)
[2017-08-30] MEDS ORDERED: VANCOMYCIN 1GM+NS 250ML 250 ML IV SCH (08:30)
[2017-08-30] MEDS: GLIPIZIDE 5 MG TABLET PO SCH ×2 (08:56→17:16)
[2017-08-30] MEDS: DOCUSATE SODIUM 100 MG CAP PO SCH ×2 (08:57→20:26)
[2017-08-30] MEDS: POLYETHYLENE GLYCOL 3350 17 GM POWD.PACK PO SCH (08:57)
[2017-08-30] MEDS: ASPIRIN 81MG TAB.CHEW PO SCH (08:57)
[2017-08-30] MEDS: LOSARTAN/HYDROCHLOROTHIAZIDE 50-12.5MG TABLET PO SCH ×3 (08:57→20:26)
[2017-08-30] MEDS: SIMETHICONE 80 MG TAB.CHEW PO SCH ×4 (08:58→20:26)
[2017-08-30] MEDS: AMLODIPINE BESYLATE 5 MG TAB PO SCH ×2 (08:58→09:00)
[2017-08-30] MEDS: FAMOTIDINE 20MG TAB 20 MG TAB PO SCH (08:58)
[2017-08-30] MEDS: CYANOCOBALAMIN (VITAMIN B-12) 1,000 MCG TABLET PO SCH (08:59)
[2017-08-30] MEDS: SENNOSIDES 8.6 MG TABLET PO SCH (08:59)
[2017-08-30] MEDS: ENOXAPARIN SODIUM 30 MG/0.3 ML SQ SCH (09:00)
[2017-08-30] MEDS: LIDOCAINE 5% TOPICAL PATCH TP SCH (09:00)
[2017-08-30] MEDS: ACETAMINOPHEN 325 MG TAB PO PRN ×3 (11:34→20:26)
[2017-08-30 12:00] VITALS: BP 151/84
[2017-08-30] MEDS: MORPHINE SULFATE 2 MG/ML 1ML SYG IVP PRN ×3 (12:32→18:08)
[2017-08-30 16:00] VITALS: BP 159/72
[2017-08-30] MEDS: ACETAMINOPHEN-CODEINE 300/30MG TAB PO PRN (16:00)
[2017-08-30 20:00] VITALS: BP 169/72
[2017-08-31] VITALS: BP 152/78
[2017-08-31 04:00] VITALS: BP 152/79
[2017-08-31] MEDS: ACETAMINOPHEN 325 MG TAB PO PRN ×3 (04:03→06:32)
[2017-08-31] MEDS: ACETAMINOPHEN-CODEINE 300/30MG TAB PO PRN (04:08)
[2017-08-31 05:23] LABS: HEMATOCRIT 30.3 % (42-54); MEAN CORPUSCULAR HEMOGLOBIN 26.8 pg (27.0-33.0); MEAN CORPUSCULAR HGB CONC 32.9 g/dL (32.0-36.0); MEAN CORPUSCULAR VOLUME 81.3 fL (79-99); PLATELET COUNT (AUTO) 463 K/uL (130-400); RED BLOOD CELL COUNT(AUTO) 3.73 MIL/uL (4.50-6.20); RED CELL DISTRIBUTION WIDTH 19.2 % (11.0-15.5); WHITE BLOOD COUNT (AUTO) 11.7 K/uL (4.8-10.8)
[2017-08-31 05:34] LABS: CREATININE 1.3 mg/dL (0.5-1.5); POTASSIUM 4.5 mmol/L (3.5-5.1)
[2017-08-31] MEDS: METOCLOPRAMIDE 10 MG/2 ML VIAL IVP SCH ×3 (07:30→17:00)
[2017-08-31 08:00] VITALS: BP 157/93
[2017-08-31] MEDS ORDERED: HYDROCODONE/ACETAMINOPHEN 5/325 MG TAB PO PRN ×2 (08:00)
[2017-08-31] MEDS: GLIPIZIDE 5 MG TABLET PO SCH ×2 (08:00→17:00)
[2017-08-31] MEDS: AMLODIPINE BESYLATE 5 MG TAB PO SCH ×2 (09:00→10:15)
[2017-08-31] MEDS ORDERED: VANCOMYCIN 750MG + NS 250 ML IV SCH ×2 (09:00)
[2017-08-31] MEDS: ASPIRIN 81MG TAB.CHEW PO SCH ×2 (09:00→10:17)
[2017-08-31] MEDS: LOSARTAN/HYDROCHLOROTHIAZIDE 50-12.5MG TABLET PO SCH (09:00)
[2017-08-31] MEDS ORDERED: KETOROLAC TROMETHAMINE 15MG/ML IV SCH (09:45)
[2017-08-31] MEDS ORDERED: PREGABALIN 75 MG CAPSULE PO SCH (09:45)
[2017-08-31] MEDS: ENOXAPARIN SODIUM 30 MG/0.3 ML SQ SCH (10:12)
[2017-08-31] MEDS: SENNOSIDES 8.6 MG TABLET PO SCH (10:17)
[2017-08-31] MEDS: DOCUSATE SODIUM 100 MG CAP PO SCH (10:17)
[2017-08-31] MEDS: FAMOTIDINE 20MG TAB 20 MG TAB PO SCH (10:17)
[2017-08-31] MEDS: POLYETHYLENE GLYCOL 3350 17 GM POWD.PACK PO SCH (10:22)
[2017-08-31] MEDS: LIDOCAINE 5% TOPICAL PATCH TP SCH (10:23)
[2017-08-31] MEDS: SIMETHICONE 80 MG TAB.CHEW PO SCH ×2 (10:23→13:00)
[2017-08-31] MEDS: INSULIN R PO SS1 SQ SCH ×2 (11:31→16:30)
[2017-08-31 11:53] VITALS: BP 106/64
== END 2017-08-31 17:34 | DRG 240 ==
LOC: EDH 22:37 → EDHIP 08-15 04:35 → 4CH 08-15 05:35
PROVIDERS: ADMIT Family Medicine; ATTEND Family Medicine
PROC: B41F1ZZ Fluoroscopy of Right Lower Extremity Arteries using Low Osmolar Contrast (ICD-10-PCS; 2017-08-26)
PROC: B41G1ZZ Fluoroscopy of Left Lower Extremity Arteries using Low Osmolar Contrast (ICD-10-PCS; 2017-08-26)
PROC: 0Y6H0Z1 Detachment at Right Lower Leg, High, Open Approach (ICD-10-PCS; principal; 2017-08-29 08:05)
DX: E11.52 Type 2 diabetes mellitus with diabetic peripheral angiopathy with gangrene (principal); E11.21 Type 2 diabetes mellitus with diabetic nephropathy; E11.40 Type 2 diabetes mellitus with diabetic neuropathy, unspecified; N18.3 Chronic kidney disease, stage 3 (moderate); I12.9 Hypertensive chronic kidney disease with stage 1 through stage 4 chronic kidney disease, or unspecified chronic kidney disease; E11.22 Type 2 diabetes mellitus with diabetic chronic kidney disease; D50.9 Iron deficiency anemia, unspecified; E11.65 Type 2 diabetes mellitus with hyperglycemia; E78.5 Hyperlipidemia, unspecified; E11.621 Type 2 diabetes mellitus with foot ulcer; I70.201 Unspecified atherosclerosis of native arteries of extremities, right leg; L97.519 Non-pressure chronic ulcer of other part of right foot with unspecified severity; M67.471 Ganglion, right ankle and foot; Z88.8 Allergy status to other drugs, medicaments and biological substances; Z89.519 Acquired absence of unspecified leg below knee; Z86.19 Personal history of other infectious and parasitic diseases; Z89.429 Acquired absence of other toe(s), unspecified side; Z79.82 Long term (current) use of aspirin; Z79.02 Long term (current) use of antithrombotics/antiplatelets
CPT/HCPCS: 36247; 36415; 71045; 72100; 73630; 73718; 74018; 75635; 75716; 76700; 80048; 80053; 80202; 81001; 82150; 82270; 82550; 82553; 82607; 82728; 82746; 82948; 83615; 83690; 83874; 84484; 85025; 85027; 85610; 85730; 87088; 88307; 88313; 90732; 93005; 93306; 93925; 97039; 99156; 99157; A4218; C1760; C1769; C1893; C1894; J0360; J1644; J1650; J1756; J1815; J1885; J2001; J2185; J2250; J2270; J2370; J2405; J2704; J2710; J2765; J2795; J3010; J3370; J3420; J3490; J7030; J7040; Q2038; Q9967

== ENCOUNTER 2018-08-06 09:45 | Inpatient (IN) | payer MEDICARE ==
[~2018-08-06] VITALS: Ht 152.4 cm; Wt 63.3 kg
[~2018-08-06 09:45] MED LIST changes: -ACET-2247 PO; +CLOP75TA14 PO; -DOCU-116 PO; -HYDR-4068 PO; -LACT10SO9 PO; +METF-446 PO; -METF10004 PO; -NAPR-1023 PO; -OMEP20CA10 PO; -VALS1TAB79 PO; -[UNRECOGNIZED DRUG - CODE] PO
[2018-08-06] MEDS ORDERED: ENOXAPARIN SODIUM 40 MG/0.4 ML SYRINGE SQ ONE (10:21)
[2018-08-06] MEDS ORDERED: ONDANSETRON HCL 4 MG/2 ML VIAL ONE (11:13)
[2018-08-06] MEDS ORDERED: SODIUM CHLORIDE 0.9% 1000ML 1,000 ML IV ONE ×2 (11:13→15:26)
[2018-08-06 11:23] LABS: BASOPHILS % (AUTO) 0.2 % (0.0-5.0); HEMATOCRIT 39.6 % (42-54); LYMPHOCYTES % (AUTO) 8.6 % (21.0-51.0); MEAN CORPUSCULAR HEMOGLOBIN 31.1 pg (27.0-33.0); MEAN CORPUSCULAR HGB CONC 34.3 g/dL (32.0-36.0); MEAN CORPUSCULAR VOLUME 90.8 fL (79-99); MONOCYTES % (AUTO) 12.2 % (3.0-13.0); PLATELET COUNT (AUTO) 222 K/uL (130-400); RED BLOOD CELL COUNT(AUTO) 4.36 MIL/uL (4.50-6.20); RED CELL DISTRIBUTION WIDTH 12.7 % (11.0-15.5); WHITE BLOOD COUNT (AUTO) 6.3 K/uL (4.8-10.8)
[2018-08-06 11:26] LABS: CREATININE 2.2 mg/dL (0.5-1.5); POTASSIUM 5.2 mmol/L (3.5-5.1)
[2018-08-06 11:30] LABS: ALBUMIN 3.5 g/dL (3.5-5.0); BILIRUBIN,TOTAL 0.6 mg/dL (0.2-1.0); TOTAL PROTEIN, SERUM 8.1 g/dL (6.0-8.3)
[2018-08-06 11:55] LABS: APPEARANCE,URINE Clear (CLEAR); BILIRUBIN,URINE Negative (NEGATIVE); COLOR,URINE Dark Yellow (YELLOW); GLUCOSE, URINE (UA) 250 mg/dL (NEGATIVE); KETONES,URINE Trace mg/dL (NEGATIVE); LEUKOCYTE ESTERASE ,URINE Negative (NEGATIVE); NITRATE,URINE Negative (NEGATIVE); OCCULT BLOOD,URINE Negative (NEGATIVE); PROTEIN,URINE POS 2+ (NEGATIVE)
[2018-08-06 12:02] LABS: BACTERIA,URINE Few /HPF (None Seen); MUCUS,URINE Rare LPF (None Seen); RBC,URINE None Seen /HPF (0-1); SQUAMOUS EPITHELIAL CELL,UR Rare /HPF (0-2); WBC,URINE None Seen /HPF (0-1)
[2018-08-06] MEDS ORDERED: CEFTRIAXONE SODIUM 1 GM ONE (13:07)
[2018-08-06] MEDS ORDERED: SODIUM CHLORIDE 0.9% 500ML 500 ML IV ONE (13:07)
[2018-08-06] MEDS ORDERED: GLUCAGON 1MG KIT 1 MG ML IM PRN (15:00)
[2018-08-06] MEDS ORDERED: DEXTROSE 50%-WATER 50 ML DISP.SYRIN IV PRN (15:00)
[2018-08-06] MEDS: SODIUM CHLORIDE 0.9% 1000ML 1,000 ML IV SCH (15:00)
[2018-08-06] MEDS ORDERED: INSULIN R PO SS1 SQ SCH (16:30)
[2018-08-07] MEDS: SODIUM CHLORIDE 0.9% 1000ML 1,000 ML IV SCH ×3 (01:00→21:00)
[2018-08-07 03:28] VITALS: BP 159/76
[2018-08-07] MEDS ORDERED: VALS1TAB79 PO (03:42)
[2018-08-07] MEDS ORDERED: HC2530C TP (03:47)
[2018-08-07] MEDS: INSULIN HUMULIN R 100 UNIT/ML 3ML SQ SCH ×4 (06:26→21:00)
[2018-08-07 06:44] LABS: HEMATOCRIT 36.1 % (42-54); MEAN CORPUSCULAR HEMOGLOBIN 30.7 pg (27.0-33.0); MEAN CORPUSCULAR HGB CONC 33.7 g/dL (32.0-36.0); MEAN CORPUSCULAR VOLUME 91.2 fL (79-99); PLATELET COUNT (AUTO) 228 K/uL (130-400); RED BLOOD CELL COUNT(AUTO) 3.96 MIL/uL (4.50-6.20); RED CELL DISTRIBUTION WIDTH 12.3 % (11.0-15.5); WHITE BLOOD COUNT (AUTO) 6.2 K/uL (4.8-10.8)
[2018-08-07 06:58] LABS: CREATININE 1.6 mg/dL (0.5-1.5); POTASSIUM 4.4 mmol/L (3.5-5.1)
[2018-08-07 08:00] VITALS: BP 167/82
[2018-08-07] MEDS: ENOXAPARIN SODIUM 30 MG/0.3 ML SQ SCH (08:58)
[2018-08-07] MEDS: FAMOTIDINE/PF 20 MG/2 ML VIAL IV SCH (08:58)
[2018-08-07] MEDS ORDERED: FAMOTIDINE/PF 20 MG/2 ML VIAL IV SCH (09:00)
[2018-08-07 11:00] VITALS: BP 140/83
[2018-08-07] MEDS ORDERED: INSU100I24 SQ (11:05)
[2018-08-07] MEDS ORDERED: HYDROCORTISONE 2.5% 28GM CREAM TP PRN (12:00)
[2018-08-07 16:00] VITALS: BP 170/84
[2018-08-07 20:51] VITALS: BP 115/69
[2018-08-08 00:18] VITALS: BP 94/55
[2018-08-08 04:39] VITALS: BP 115/67
[2018-08-08 05:11] LABS: BASOPHILS % (AUTO) 0.7 % (0.0-5.0); EOSINOPHILS % (AUTO) 2.8 % (0.0-8.0); LYMPHOCYTES % (AUTO) 36.1 % (21.0-51.0); MEAN CORPUSCULAR HEMOGLOBIN 31.2 pg (27.0-33.0); MEAN CORPUSCULAR HGB CONC 34.3 g/dL (32.0-36.0); MONOCYTES % (AUTO) 16.5 % (3.0-13.0); NEUTROPHILS % (AUTO) 43.9 % (40.0-77.0); NUCLEATED RED BLOOD CELLS 0.1 % (0.0-0.19); PLATELET COUNT (AUTO) 194 K/uL (130-400); RED BLOOD CELL COUNT(AUTO) 3.63 MIL/uL (4.50-6.20); RED CELL DISTRIBUTION WIDTH 12.8 % (11.0-15.5); WHITE BLOOD COUNT (AUTO) 3.9 K/uL (4.8-10.8)
[2018-08-08 05:25] LABS: CREATININE 1.7 mg/dL (0.5-1.5); POTASSIUM 4.2 mmol/L (3.5-5.1)
[2018-08-08] MEDS: SODIUM CHLORIDE 0.9% 1000ML 1,000 ML IV SCH ×2 (07:00→17:00)
[2018-08-08] MEDS: INSULIN HUMULIN R 100 UNIT/ML 3ML SQ SCH ×4 (07:30→21:00)
[2018-08-08 08:00] VITALS: BP 154/73
[2018-08-08] MEDS: TRESIBA 10 UNIT SQ SCH (08:54)
[2018-08-08] MEDS: HYDROCHLOROTHIAZIDE 25 MG TABLET PO SCH ×2 (09:00→09:28)
[2018-08-08] MEDS: FAMOTIDINE/PF 20 MG/2 ML VIAL IV SCH (09:27)
[2018-08-08] MEDS: LOSARTAN 100 MG TABLET PO SCH (09:28)
[2018-08-08] MEDS: ENOXAPARIN SODIUM 30 MG/0.3 ML SQ SCH (09:28)
[2018-08-08 12:00] VITALS: BP 140/70
[2018-08-08 16:00] VITALS: BP 139/71
[2018-08-08] MEDS: GLIPIZIDE 5 MG TABLET PO SCH (18:07)
--- NOTE | 2018-08-08 18:46 | NUR ---
DELISA Whitney PT ALONE, CZECH SPEAKING LIVES W SON & DAUGHTER IN LAW; Zane Whitney PROSTHESE, HIRA W HEARING AIDS, RAMP AT HOME, MAGDALENO, WKR, PLAN IS HOME Addendum: 08/08/18 at 1848 by ALIRIO ROSARIO RN CM Amended: Links added.
[2018-08-08 21:26] VITALS: BP 144/65
[2018-08-09 01:18] VITALS: BP 156/73
[2018-08-09] MEDS: SODIUM CHLORIDE 0.9% 1000ML 1,000 ML IV SCH ×2 (03:00→21:11)
[2018-08-09 04:29] LABS: BASOPHILS % (AUTO) 0.7 % (0.0-5.0); EOSINOPHILS % (AUTO) 3.7 % (0.0-8.0); HEMATOCRIT 31.2 % (42-54); LYMPHOCYTES % (AUTO) 47.6 % (21.0-51.0); MEAN CORPUSCULAR HEMOGLOBIN 31.3 pg (27.0-33.0); MEAN CORPUSCULAR HGB CONC 34.7 g/dL (32.0-36.0); MEAN CORPUSCULAR VOLUME 90.2 fL (79-99); MONOCYTES % (AUTO) 14.8 % (3.0-13.0); NEUTROPHILS % (AUTO) 33.2 % (40.0-77.0); NUCLEATED RED BLOOD CELLS 0.1 % (0.0-0.19); PLATELET COUNT (AUTO) 189 K/uL (130-400); RED BLOOD CELL COUNT(AUTO) 3.46 MIL/uL (4.50-6.20); RED CELL DISTRIBUTION WIDTH 12.6 % (11.0-15.5); WHITE BLOOD COUNT (AUTO) 2.9 K/uL (4.8-10.8)
[2018-08-09 04:45] VITALS: BP 130/58
[2018-08-09 04:56] LABS: CREATININE 1.3 mg/dL (0.5-1.5); POTASSIUM 3.5 mmol/L (3.5-5.1)
[2018-08-09 05:30] LABS: BAND NEUTROPHILS % (MANUAL) 25 % (0-2); LYMPHOCYTES % (MANUAL) 21 % (22-44); MAN.DIFF COMMENT-IMPRESSION MANUAL DIFFERENTIAL; MONOCYTES % (MANUAL) 14 % (2-9); PLATELET MORPHOLOGY COMMENT ADEQUATE; REACTIVE LYMPHOCYTES 11 % (0-0); SEGMENTED NEUTROPHILS % 29 % (40-70)
[2018-08-09] MEDS: INSULIN HUMULIN R 100 UNIT/ML 3ML SQ SCH ×4 (06:29→21:00)
[2018-08-09 08:00] VITALS: BP 145/66
[2018-08-09] MEDS: TRESIBA 10 UNIT SQ SCH (09:00)
[2018-08-09] MEDS: LOSARTAN 100 MG TABLET PO SCH (09:33)
[2018-08-09] MEDS: HYDROCHLOROTHIAZIDE 25 MG TABLET PO SCH (09:33)
[2018-08-09] MEDS: FAMOTIDINE/PF 20 MG/2 ML VIAL IV SCH (09:33)
[2018-08-09] MEDS: GLIPIZIDE 5 MG TABLET PO SCH ×2 (09:33→17:12)
[2018-08-09] MEDS: ENOXAPARIN SODIUM 30 MG/0.3 ML SQ SCH (09:35)
[2018-08-09 11:00] VITALS: BP 147/66
[2018-08-09] MEDS ORDERED: METRONIDAZOLE 500MG/100ML BAG 100 ML IV SCH (14:00)
[2018-08-09] MEDS ORDERED: PHARMACY COMMUNICATION MISC SCH (15:00)
[2018-08-09] MEDS ORDERED: COMPOUND PO MISCELLANEOUS 1 EACH MISC MISC PRN (16:00)
[2018-08-09 16:09] VITALS: BP 126/57
[2018-08-09] MEDS: VANCOMYCIN HCL 125 MG PO SCH ×4 (17:12→21:12)
[2018-08-09 21:28] VITALS: BP 171/74
[2018-08-10 00:56] VITALS: BP 161/80
[2018-08-10 04:39] VITALS: BP 166/91
[2018-08-10 04:53] LABS: BASOPHILS % (AUTO) 0.6 % (0.0-5.0); EOSINOPHILS % (AUTO) 3.1 % (0.0-8.0); HEMATOCRIT 31.5 % (42-54); LYMPHOCYTES % (AUTO) 41.5 % (21.0-51.0); MEAN CORPUSCULAR HEMOGLOBIN 31.1 pg (27.0-33.0); MEAN CORPUSCULAR HGB CONC 34.5 g/dL (32.0-36.0); MEAN CORPUSCULAR VOLUME 90.1 fL (79-99); MONOCYTES % (AUTO) 11.3 % (3.0-13.0); NEUTROPHILS % (AUTO) 43.5 % (40.0-77.0); PLATELET COUNT (AUTO) 223 K/uL (130-400); RED CELL DISTRIBUTION WIDTH 12.6 % (11.0-15.5); WHITE BLOOD COUNT (AUTO) 3.5 K/uL (4.8-10.8)
[2018-08-10 05:11] LABS: CREATININE 1.2 mg/dL (0.5-1.5); POTASSIUM 3.5 mmol/L (3.5-5.1)
[2018-08-10] MEDS: VANCOMYCIN HCL 125 MG PO SCH ×8 (05:32→21:41)
[2018-08-10] MEDS: INSULIN HUMULIN R 100 UNIT/ML 3ML SQ SCH ×4 (06:48→21:43)
[2018-08-10 08:00] VITALS: BP 188/92
[2018-08-10] MEDS: TRESIBA 10 UNIT SQ SCH (09:00)
[2018-08-10] MEDS: LOSARTAN 100 MG TABLET PO SCH (09:41)
[2018-08-10] MEDS: HYDROCHLOROTHIAZIDE 25 MG TABLET PO SCH (09:41)
[2018-08-10] MEDS: GLIPIZIDE 5 MG TABLET PO SCH ×2 (09:42→19:32)
[2018-08-10] MEDS: FAMOTIDINE/PF 20 MG/2 ML VIAL IV SCH (09:45)
[2018-08-10] MEDS: ENOXAPARIN SODIUM 30 MG/0.3 ML SQ SCH (09:48)
[2018-08-10 12:01] VITALS: BP 156/67
[2018-08-10 16:00] VITALS: BP 140/82
--- NOTE | 2018-08-10 16:00 | NUR ---
PATIENT UP AD MANN WITH WALKER FOR SUPPORT. NO COMPLAINTS OF PAIN VOICED AT THIS TIME. VITALS STABLE. AFEBRILE. TOLERATING PO DIET WELL. NO NAUSEA OR VOMITING NOTED. BS 100, NO COVERAGE NEEDED. IN GOOD SPIRITS. FAMILY AT SIDE. CALL LIGHT WITHIN REACH. WILL CONTINUE TO BE OBSERVED. Addendum: 08/10/18 at 2035 by GISELLE BLUE RN RN Amended: Links added.
[2018-08-10] MEDS ORDERED: AMLODIPINE BESYLATE 5 MG TAB PO ONE (18:45)
[2018-08-10] MEDS ORDERED: FAMOTIDINE 20MG TAB 20 MG TAB PO SCH (21:00)
[2018-08-10 21:29] VITALS: BP 162/75
[2018-08-11 00:06] VITALS: BP 171/84
[2018-08-11 04:10] VITALS: BP 148/80
[2018-08-11] MEDS: VANCOMYCIN HCL 125 MG PO SCH ×4 (04:36→08:49)
[2018-08-11 04:46] LABS: HEMATOCRIT 33.9 % (42-54); MEAN CORPUSCULAR HEMOGLOBIN 31.2 pg (27.0-33.0); MEAN CORPUSCULAR HGB CONC 35.2 g/dL (32.0-36.0); MEAN CORPUSCULAR VOLUME 88.6 fL (79-99); NUCLEATED RED BLOOD CELLS 0.1 % (0.0-0.19); PLATELET COUNT (AUTO) 243 K/uL (130-400); RED BLOOD CELL COUNT(AUTO) 3.83 MIL/uL (4.50-6.20); RED CELL DISTRIBUTION WIDTH 12.6 % (11.0-15.5); WHITE BLOOD COUNT (AUTO) 4.3 K/uL (4.8-10.8)
[2018-08-11 04:57] LABS: CREATININE 1.2 mg/dL (0.5-1.5); POTASSIUM 3.2 mmol/L (3.5-5.1)
[2018-08-11] MEDS: INSULIN HUMULIN R 100 UNIT/ML 3ML SQ SCH (07:30)
[2018-08-11 08:00] VITALS: BP 174/88
--- NOTE | 2018-08-11 08:00 | NUR ---
NOTES AAOX3. DENIES PAIN OR DISCOMFORT. NO DISTRESS OR SOB. BBS CLEAR. DENIES DIARRHEA. LAST BM YESTERDAY. POSITIVE FOR C.DIFF, RECURRENT IN HIS CASE, ROTA VIRUS AND E. COLI IN THE STOOL. HAS BEEN RESPONDING TO ABX AND WILL GO HOME TODAY ACCORDING TO HIM, TOLD BY YESTERDAY. CAME IN WITH ARF AND DIARRHEA. KIDNEY FUNCTION BACK TO NORMAL. ISOLATION FOR C.DIFF.
[2018-08-11] MEDS: LOSARTAN 100 MG TABLET PO SCH (08:47)
[2018-08-11] MEDS: HYDROCHLOROTHIAZIDE 25 MG TABLET PO SCH (08:47)
[2018-08-11] MEDS: ENOXAPARIN SODIUM 30 MG/0.3 ML SQ SCH (08:48)
[2018-08-11] MEDS: GLIPIZIDE 5 MG TABLET PO SCH (08:48)
[2018-08-11] MEDS: TRESIBA 10 UNIT SQ SCH (08:49)
[2018-08-11] MEDS ORDERED: AMLODIPINE BESYLATE 5 MG TAB PO SCH (09:00)
[2018-08-11] MEDS ORDERED: AMLO5TAB4 PO (09:00)
--- NOTE | 2018-08-11 10:00 | NUR ---
DISCHARGE DISCHARGE INSTRUCTIONS GIVEN AT THIS TIME. FAMILY HERE TO PICK HIM UP. INSTRUCTED ON HOW IMPORTANT TAKING THE WHOLE TREATMENT OF PO ANTIBIOTICS. HE UNDERSTANDS. ALSO EXPLAINED HOW BAD THIS INFECTION IS OR CAN GET AND GAVE READING MATERIAL ON IT. STABLE UPON LEAVING.
== END 2018-08-11 10:31 | disposition home or self-care (01) | DRG 391 ==
LOC: EDH 09:45 → EDHIP 12:56 → OBSVTOIN 12:56 → 4CH 08-07 03:28
PROVIDERS: ADMIT Family Medicine; ATTEND Family Medicine
DX: K52.9 Noninfective gastroenteritis and colitis, unspecified (principal); N17.0 Acute kidney failure with tubular necrosis; N18.9 Chronic kidney disease, unspecified; E11.22 Type 2 diabetes mellitus with diabetic chronic kidney disease; I12.9 Hypertensive chronic kidney disease with stage 1 through stage 4 chronic kidney disease, or unspecified chronic kidney disease; K76.0 Fatty (change of) liver, not elsewhere classified; E78.5 Hyperlipidemia, unspecified; B96.89 Other specified bacterial agents as the cause of diseases classified elsewhere; E11.42 Type 2 diabetes mellitus with diabetic polyneuropathy; Z88.8 Allergy status to other drugs, medicaments and biological substances; Z87.19 Personal history of other diseases of the digestive system
CPT/HCPCS: 36415; 74176; 80048; 80053; 81001; 82948; 83690; 85025; 85027; 87507; A4218; G0378; J0696; J1650; J1815; J2405; J3370; J3490; J7030; J7040

== ENCOUNTER 2018-08-25 12:29 | Emergency (ER) | payer MEDICARE ==
[~2018-08-25 12:29] MED LIST changes: +AMLO5TAB4 PO; -CLOP75TA14 PO; +HC2530C TP; +INSU100I24 SQ; -LOSA1TAB37 PO; -METF-446 PO; +VALS1TAB79 PO
[2018-08-25 15:18] LABS: APPEARANCE,URINE Clear (CLEAR); BILIRUBIN,URINE Negative (NEGATIVE); COLOR,URINE Yellow (YELLOW); GLUCOSE, URINE (UA) >=1000 mg/dL (NEGATIVE); KETONES,URINE Trace mg/dL (NEGATIVE); LEUKOCYTE ESTERASE ,URINE Negative (NEGATIVE); NITRATE,URINE Negative (NEGATIVE); OCCULT BLOOD,URINE Trace (NEGATIVE); PROTEIN,URINE POS 2+ (NEGATIVE); UROBILINOGEN,URINE 0.2 mg/dL (0.2-1.0)
[2018-08-25] MEDS ORDERED: CLONIDINE HCL 0.1 MG TABLET ONE (15:29)
[2018-08-25] MEDS ORDERED: PROCHLORPERAZINE EDISYLATE 10 MG/2 ML VIAL ONE (15:30)
[2018-08-25] MEDS ORDERED: DiphenhydrAMINE HCL 50 MG/ML VIAL ONE (15:30)
[2018-08-25 15:50] LABS: BACTERIA,URINE None Seen /HPF (None Seen); RBC,URINE 0-1 /HPF (0-1); SQUAMOUS EPITHELIAL CELL,UR 0-2 /HPF (0-2); WBC,URINE None Seen /HPF (0-1)
[2018-08-25 16:17] LABS: BASOPHILS % (AUTO) 1.1 % (0.0-5.0); EOSINOPHILS % (AUTO) 0.3 % (0.0-8.0); LYMPHOCYTES % (AUTO) 15.8 % (21.0-51.0); MEAN CORPUSCULAR HGB CONC 33.9 g/dL (32.0-36.0); MEAN CORPUSCULAR VOLUME 91.4 fL (79-99); MONOCYTES % (AUTO) 3.7 % (3.0-13.0); NEUTROPHILS % (AUTO) 79.1 % (40.0-77.0); PLATELET COUNT (AUTO) 281 K/uL (130-400); RED BLOOD CELL COUNT(AUTO) 4.05 MIL/uL (4.50-6.20); RED CELL DISTRIBUTION WIDTH 12.1 % (11.0-15.5)
[2018-08-25 16:30] LABS: CREATININE 1.4 mg/dL (0.5-1.5); POTASSIUM 4.3 mmol/L (3.5-5.1)
[2018-08-25 16:35] LABS: ALBUMIN 3.7 g/dL (3.5-5.0); BILIRUBIN,TOTAL 0.5 mg/dL (0.2-1.0); TOTAL PROTEIN, SERUM 7.7 g/dL (6.0-8.3)
[2018-08-25] MEDS ORDERED: MORPHINE SULFATE 4 MG/1ML SYG ONE (16:42)
[2018-08-25] MEDS ORDERED: INSULIN HUMULIN R 100 UNIT/ML 3ML ONE (16:53)
[2018-08-25] MEDS ORDERED: KETOROLAC TROMETHAMINE 30MG/ML ONE (17:56)
== END 2018-08-25 19:17 | disposition home or self-care (01) ==
LOC: EDH 12:29
DX: I10 Essential (primary) hypertension (principal); E11.9 Type 2 diabetes mellitus without complications; R51 Headache; Z98.890 Other specified postprocedural states; Z88.6 Allergy status to analgesic agent
CPT/HCPCS: 36415; 70450; 80053; 81001; 85025; 85651; 93005; 96374; 96375; 99284; J0780; J1200; J1815; J1885; J2270